=== PATIENT | female | born 1945 | race Caucasian/White ===

== ENCOUNTER 2019-12-05 12:00 | Emergency (ER) | payer MEDICARE, OTHER ==
[~2019-12-05] VITALS: Ht 167.6 cm; Wt 49.9 kg
[~2019-12-05 12:00] MED LIST: ALBU90OI INH; ASPI81CH; FLUC150A PO; GABA100; Monodox100 MG PO; OXYC5; SPACE CHAMBER1 EACH MC
[2019-12-05] MEDS ORDERED: CONEST.625 PO (15:52)
[2019-12-05] MEDS ORDERED: TRAZ100 PO (15:52)
[2019-12-05] MEDS ORDERED: OXYC10TA19 PO (15:57)
== END 2019-12-05 16:15 | disposition home or self-care (01) ==
LOC: ER 12:00
DX: G89.29 Other chronic pain (principal); M54.2 Cervicalgia; M54.9 Dorsalgia, unspecified; M79.605 Pain in left leg; M79.604 Pain in right leg; Z76.0 Encounter for issue of repeat prescription; Z79.82 Long term (current) use of aspirin; Z79.899 Other long term (current) drug therapy; Z86.69 Personal history of other diseases of the nervous system and sense organs; Z87.39 Personal history of other diseases of the musculoskeletal system and connective tissue; Z88.0 Allergy status to penicillin; Z88.8 Allergy status to other drugs, medicaments and biological substances
CPT/HCPCS: 99281

== ENCOUNTER 2020-09-02 12:36 | Emergency (ER) | payer MEDICARE, OTHER ==
[~2020-09-02] VITALS: Ht 167.6 cm; Wt 51.7 kg
[~2020-09-02 12:36] MED LIST changes: +CONEST.625 PO; +OXYC10TA19 PO; +TRAZ100 PO
[2020-09-02] MEDS ORDERED: FLUTICASONE PRO16 GM (13:26)
[2020-09-02] MEDS ORDERED: CETI5 PO (13:26)
[2020-09-02 13:28] LABS: BASOPHILS ABSOLUTE AUTO 0.04 K/mm3 (0.00-0.23); BASOPHILS PERCENT AUTO 1 % (0-2); EOSINOPHILS ABSOLUTE AUTO 0.06 K/mm3 (0.00-0.68); EOSINOPHILS PERCENT AUTO 1 % (0-6); Hematocrit 37.8 % (33.0-51.0); Hemoglobin 12.4 g/dL (11.5-16.0); IMMATURE GRAN ABSOLUTE AUTO 0.02 K/mm3 (0.00-0.10); IMMATURE GRAN PERCENT AUTO 0 % (0-1); LYMPHOCYTES ABSOLUTE AUTO 1.23 K/mm3 (0.84-5.20); LYMPHOCYTES PERCENT AUTO 21 % (21-46); MONOCYTES ABSOLUTE AUTO 0.39 K/mm3 (0.16-1.47); MONOCYTES PERCENT AUTO 7 % (4-13); Mean Corpuscular HGB 31.5 pg (26.0-34.0); Mean Corpuscular HGB Conc 32.8 g/dL (31.5-36.5); Mean Corpuscular Volume 96 fL (80-100); Mean Platelet Volume 9.7 fL (9.1-12.4); NEUTROPHILS ABSOLUTE AUTO 4.09 K/mm3 (1.96-9.15); NEUTROPHILS PERCENT AUTO 70 % (41-73); Platelet Count 237 K/mm3 (150-400); RDW Coefficient Variation 12.5 % (11.7-14.2); RDW Standard Deviation 43.9 fL (35.1-46.3); Red Blood Cell Count 3.94 M/mm3 (3.80-5.20); White Blood Cell Count 5.83 K/mm3 (4.00-11.30)
[2020-09-02 13:51] LABS: Alanine Aminotransfer (ALT/SGP 15 U/L (12-78); Albumin, Blood 3.2 g/dL (3.4-5.0); Albumin/Globulin Ratio 0.8 (0.8-1.8); Alk Phos 53 U/L (50-136); Anion Gap 4 mmol/L (6-16); Aspartate Aminotrans (AST/SGOT 13 U/L (12-37); Bilirubin, Total 0.2 mg/dL (0.1-1.0); Blood Urea Nitrogen 22 mg/dL (8-24); Bun/Creatinine Ratio 27.7 (12.0-20.0); CO2, Blood 28 mmol/L (21-32); Calcium, Blood 9.6 mg/dL (8.5-10.1); Chloride, Blood 101 mmol/L (98-108); Globulin, Blood 4.2 g/dL (2.2-4.0); Glomerular Filtration Rate >60 (60-); Glucose, Blood 110 mg/dL (70-99); Sodium, Blood 133 mmol/L (136-145); Total Protein, Blood 7.4 g/dL (6.4-8.2); Troponin I <0.015 ng/mL (0.000-0.040)
== END 2020-09-02 15:21 | disposition home or self-care (01) ==
LOC: ER 12:36
PROVIDERS: Emergency Medicine
DX: M25.462 Effusion, left knee (principal); R19.7 Diarrhea, unspecified; R07.9 Chest pain, unspecified; Z88.0 Allergy status to penicillin; Z88.8 Allergy status to other drugs, medicaments and biological substances; Z79.82 Long term (current) use of aspirin; Z79.899 Other long term (current) drug therapy
CPT/HCPCS: 29505; 36415; 71045; 73562-RT; 80053; 84484; 85025; 93005; 93010; 99284-25

== ENCOUNTER 2021-06-09 11:13 | Emergency (ER) | payer MEDICARE, OTHER ==
[~2021-06-09] VITALS: Ht 167.6 cm; Wt 51.7 kg
[~2021-06-09 11:13] MED LIST changes: +CETI5 PO; +FLUTICASONE PRO16 GM; -GABA100; +GABA100 PO
[2021-06-09 11:49] LABS: BASOPHILS ABSOLUTE AUTO 0.04 K/mm3 (0.00-0.23); BASOPHILS PERCENT AUTO 1 % (0-2); EOSINOPHILS ABSOLUTE AUTO 0.05 K/mm3 (0.00-0.68); EOSINOPHILS PERCENT AUTO 1 % (0-6); Hematocrit 38.4 % (33.0-51.0); Hemoglobin 12.7 g/dL (11.5-16.0); IMMATURE GRAN ABSOLUTE AUTO 0.01 K/mm3 (0.00-0.10); IMMATURE GRAN PERCENT AUTO 0 % (0-1); LYMPHOCYTES ABSOLUTE AUTO 1.45 K/mm3 (0.84-5.20); LYMPHOCYTES PERCENT AUTO 26 % (21-46); MONOCYTES ABSOLUTE AUTO 0.35 K/mm3 (0.16-1.47); MONOCYTES PERCENT AUTO 6 % (4-13); Mean Corpuscular HGB Conc 33.1 g/dL (31.5-36.5); Mean Corpuscular Volume 97 fL (80-100); Mean Platelet Volume 9.4 fL (9.1-12.4); NEUTROPHILS ABSOLUTE AUTO 3.72 K/mm3 (1.96-9.15); NEUTROPHILS PERCENT AUTO 66 % (41-73); Platelet Count 205 K/mm3 (150-400); RDW Standard Deviation 46.6 fL (35.1-46.3); Red Blood Cell Count 3.97 M/mm3 (3.80-5.20); White Blood Cell Count 5.62 K/mm3 (4.00-11.30)
[2021-06-09 12:12] LABS: Alanine Aminotransfer (ALT/SGP 17 U/L (12-78); Albumin, Blood 3.6 g/dL (3.4-5.0); Albumin/Globulin Ratio 0.9 (0.8-1.8); Alk Phos 48 U/L (50-136); Anion Gap 8 mmol/L (6-16); Aspartate Aminotrans (AST/SGOT 20 U/L (12-37); Bilirubin, Total 0.3 mg/dL (0.1-1.0); Blood Urea Nitrogen 18 mg/dL (8-24); Bun/Creatinine Ratio 22.2 (12.0-20.0); CO2, Blood 30 mmol/L (21-32); Calcium, Blood 10.6 mg/dL (8.5-10.1); Chloride, Blood 101 mmol/L (98-108); Creatinine, Blood 0.81 mg/dL (0.40-1.00); Glomerular Filtration Rate >60 (60-); Glucose, Blood 93 mg/dL (70-99); Potassium, Blood 4.1 mmol/L (3.5-5.5); Sodium, Blood 139 mmol/L (136-145); Total Protein, Blood 7.6 g/dL (6.4-8.2)
[2021-06-09 12:13] LABS: Source, Urine Clean Catch
[2021-06-09 12:21] LABS: Appearance, Urine Cloudy (Clear); Bilirubin, Urine Neg (Neg); Blood, Urine Neg (Neg); Color, Urine Yellow (P-Yellow); Glucose Qualitative, Urine Neg (Neg); Ketones, Urine Neg (Neg); Leukocyte Esterase, Urine 1+ (Neg); Nitrite, Urine Neg (Neg); Protein, Urine Neg (Neg); Specific Gravity, Urine 1.015 (1.003-1.022); Urobilinogen, Urine NORM (Normal)
[2021-06-09 12:58] LABS: Bacteria Mod /hpf; Red Blood Cells, Urine 0-2 /hpf (0-2); Squamous Epithelial Cells Few /hpf (Few)
[2021-06-09 16:44] LABS: Influenza A, PCR NEGATIVE (NEGATIVE); Influenza B, PCR NEGATIVE (NEGATIVE); Resp Syncytial Virus, PCR NEGATIVE (NEGATIVE); SARS-Cov-2 (COVID-19) PCR, MMC NEGATIVE (NEGATIVE)
[2021-06-09 19:47] LABS: Adenovirus F 40/41 Not Detected (NOT DETECT); Astrovirus Not Detected (NOT DETECT); Campylobacter Sp Not Detected (NOT DETECT); Cryptosporidium Not Detected (NOT DETECT); Cyclospora Cayetanensis Not Detected (NOT DETECT); E. Coli O157 Not Detected (NOT DETECT); Entamoeba Histolytica Not Detected (NOT DETECT); Enteroaggregative E. coli-EAEC Not Detected (NOT DETECT); Enteropathogenic E. coli-EPEC Not Detected (NOT DETECT); Enterotoxigenic E. coli-ETEC Not Detected (NOT DETECT); Giardia Lamblia Not Detected (NOT DETECT); Norovirus GI/GII Detected (NOT DETECT); Plesiomonas Shigelloides Not Detected (NOT DETECT); Rotavirus A Not Detected (NOT DETECT); Salmonella Sp Not Detected (NOT DETECT); Sapovirus Not Detected (NOT DETECT); Shiga Toxin-prod E. coli-STEC Not Detected (NOT DETECT); Shigella/Enteroin E. coli-EIEC Not Detected (NOT DETECT); Vibrio Cholerae Not Detected (NOT DETECT); Vibrio Sp Not Detected (NOT DETECT); Yersinia Enterocolitica Not Detected (NOT DETECT)
[2021-06-09] MEDS ORDERED: LOPE2C PO (20:37)
== END 2021-06-09 21:00 | disposition home or self-care (01) ==
LOC: ER 11:13
PROVIDERS: Emergency Medicine; Physician Assistant
DX: R19.7 Diarrhea, unspecified (principal); G35 Multiple sclerosis; Z88.8 Allergy status to other drugs, medicaments and biological substances; Z20.822 Contact with and (suspected) exposure to COVID-19
CPT/HCPCS: 0241U; 36415; 70450; 80053; 81001; 85025; 87507

== ENCOUNTER 2021-12-02 14:47 | Inpatient (IN) | payer MEDICARE, OTHER ==
[~2021-12-02] VITALS: Ht 167.6 cm; Wt 64.7 kg
[~2021-12-02 14:47] MED LIST changes: +LOPE2C PO
[2021-12-02 16:25] LABS: BASOPHILS ABSOLUTE AUTO 0.04 K/mm3 (0.00-0.23); BASOPHILS PERCENT AUTO 1 % (0-2); EOSINOPHILS ABSOLUTE AUTO 0.03 K/mm3 (0.00-0.68); EOSINOPHILS PERCENT AUTO 1 % (0-6); Hematocrit 39.5 % (33.0-51.0); Hemoglobin 13.2 g/dL (11.5-16.0); IMMATURE GRAN ABSOLUTE AUTO 0.03 K/mm3 (0.00-0.10); IMMATURE GRAN PERCENT AUTO 1 % (0-1); LYMPHOCYTES PERCENT AUTO 19 % (21-46); MONOCYTES ABSOLUTE AUTO 0.39 K/mm3 (0.16-1.47); MONOCYTES PERCENT AUTO 7 % (4-13); Mean Corpuscular HGB 31.7 pg (26.0-34.0); Mean Corpuscular HGB Conc 33.4 g/dL (31.5-36.5); Mean Corpuscular Volume 95 fL (80-100); Mean Platelet Volume 10.2 fL (9.1-12.4); NEUTROPHILS ABSOLUTE AUTO 4.34 K/mm3 (1.96-9.15); NEUTROPHILS PERCENT AUTO 73 % (41-73); Platelet Count 288 K/mm3 (150-400); RDW Coefficient Variation 13.7 % (11.7-14.2); RDW Standard Deviation 47.9 fL (35.1-46.3); Red Blood Cell Count 4.16 M/mm3 (3.80-5.20); White Blood Cell Count 5.93 K/mm3 (4.00-11.30)
[2021-12-02 16:38] LABS: Albumin, Blood 3.7 g/dL (3.4-5.0); Bilirubin, Total 0.4 mg/dL (0.1-1.0); Bun/Creatinine Ratio 27.6 (12.0-20.0); Calcium, Blood 9.7 mg/dL (8.5-10.1); Creatinine, Blood 0.98 mg/dL (0.40-1.00); Globulin, Blood 3.7 g/dL (2.2-4.0); Magnesium, Blood 2.5 mg/dL (1.6-2.4); Potassium, Blood 4.4 mmol/L (3.5-5.5); Total Protein, Blood 7.4 g/dL (6.4-8.2)
[2021-12-02 16:53] LABS: Influenza A, PCR NEGATIVE (NEGATIVE); Influenza B, PCR NEGATIVE (NEGATIVE); Resp Syncytial Virus, PCR NEGATIVE (NEGATIVE); SARS-Cov-2 (COVID-19) PCR, MMC NEGATIVE (NEGATIVE)
[2021-12-02 18:10] LABS: Source, Urine Clean Catch
[2021-12-02 18:19] LABS: Bilirubin, Urine Neg (Neg); Blood, Urine Neg (Neg); Color, Urine Yellow (P-Yellow); Glucose Qualitative, Urine Neg (Neg); Ketones, Urine 2+ (Neg); Leukocyte Esterase, Urine 1+ (Neg); Nitrite, Urine Neg (Neg); Protein, Urine 2+ (Neg); Urobilinogen, Urine NORM (Normal)
[2021-12-02 18:36] LABS: Appearance, Urine Hazy (Clear)
[2021-12-02 18:37] LABS: Hyaline Casts TNTC /lpf (0-2)
[2021-12-02 18:38] LABS: Bacteria Few /hpf; Red Blood Cells, Urine 0-2 /hpf (0-2); Renal Epithelial Rare /hpf (0-Rare); Squamous Epithelial Cells Few /hpf (Few)
[2021-12-02 22:40] LABS: Hemoglobin 11.5 g/dL (11.5-16.0); Mean Corpuscular HGB 31.7 pg (26.0-34.0); Mean Corpuscular HGB Conc 32.9 g/dL (31.5-36.5); Mean Corpuscular Volume 96 fL (80-100); Mean Platelet Volume 9.9 fL (9.1-12.4); Platelet Count 226 K/mm3 (150-400); RDW Coefficient Variation 13.7 % (11.7-14.2); RDW Standard Deviation 48.8 fL (35.1-46.3); Red Blood Cell Count 3.63 M/mm3 (3.80-5.20); White Blood Cell Count 5.06 K/mm3 (4.00-11.30)
--- NOTE | 2021-12-03 02:34 | NUR ---
ADMISSION: PT ARRIVED VIA GURNEY TO U 13 @0145, SLID OVER FROM [facility] TO HOSPITAL BED. PT ALERT AND ORIENTED X4, BP STABLE, HR AFIB 110'S, AFEBRILE, SATING >94% ON RA. NO COMPLAINTS OF CP OF SOB. RESPIRATIONS EVEN AND UNLABORED. SKIN WARM TO TOUCH. STRENGTH EQUAL BILATERALLY. PT NPO FOR POSSIBLE THROACENTESIS TOMORROW. MUTIPLE INSECT BITES NOTED ON PT UPPER EXTREMENTIES. PT STATES THEY ARE "TIC BITES." NO OTHER COMPLAINTS AT THIS TIMES. PT ORIENTED TO CALL LIGHT, BED IN LOW, CALL LIGHT IN REACH.
[2021-12-03 04:19] LABS: Hematocrit 31.9 % (33.0-51.0); Hemoglobin 10.4 g/dL (11.5-16.0); Mean Corpuscular HGB 31.6 pg (26.0-34.0); Mean Corpuscular HGB Conc 32.6 g/dL (31.5-36.5); Mean Corpuscular Volume 97 fL (80-100); Mean Platelet Volume 10.1 fL (9.1-12.4); Platelet Count 210 K/mm3 (150-400); RDW Standard Deviation 49.5 fL (35.1-46.3); Red Blood Cell Count 3.29 M/mm3 (3.80-5.20); White Blood Cell Count 6.49 K/mm3 (4.00-11.30)
[2021-12-03 04:37] LABS: International Normalized Ratio 1.09; Prothrombin Time Results 11.4 Sec (9.7-11.5)
[2021-12-03 05:04] LABS: Albumin, Blood 2.6 g/dL (3.4-5.0); Bilirubin, Total 0.4 mg/dL (0.1-1.0); Bun/Creatinine Ratio 27.3 (12.0-20.0); Calcium, Blood 7.8 mg/dL (8.5-10.1); Creatinine, Blood 0.84 mg/dL (0.40-1.00); Globulin, Blood 2.7 g/dL (2.2-4.0); Potassium, Blood 4.2 mmol/L (3.5-5.5); Total Protein, Blood 5.3 g/dL (6.4-8.2)
--- NOTE | 2021-12-03 05:13 | NUR ---
SHIFT SUMMARY: PT REMAINS ALERT AND ORIENTED X4, BP STABLE, HR REMAINS AFIB 90'S, AFEBRILE, SATING >95% ON RA. 0200 LOPRESSOR HELD DUE TO BP AND IMPROVED HR. NOTIFIED. PT DENIES N/V. NO BM THIS SHIFT. PT ABLE TO REPOS IND IN BED, HAS SLEPT ON AND OFF SINCE ADMISSION. PT REMAINS NPO FOR POSS THORACENTESIS TODAY. BED IN LOW, CALL LIGHT IN REACH, WILL REPORT TO ONCOMING RN.
--- NOTE | 2021-12-03 10:41 | NUR ---
LAB CONTACTED THIS RN [id number] ABOUT FLUIDS REMOVED DURING THORACENTESIS. LAB RECIEVED FLUIDS FROM HYDRAULICS ENGINEER AND ASKED IF THE MD WAS WANTING THE FLUIDS CHECKED FOR ANYTHING SINCE THERE WAS NO ORDERS. THIS RN CONTACTED MD AT 1035 ABOUT FLUIDS. AWAITING FURTHER INSTRUCTION FROM
[2021-12-03 11:31] LABS: Automated BF WBC Count 0.063 K/mm3 (0-999)
[2021-12-03 11:45] LABS: Body Fluid WBC Count 63 /mm3 (0-999); Lactate Dehydrogenase, Body Fl 54 U/L
[2021-12-03 11:49] LABS: Glucose, Body Fluid 98 mg/dL; Protein, Body Fluid 1.4 g/dL
[2021-12-03 12:38] LABS: RBC Count, Body Fluid 1045 /mm3 (0-0)
[2021-12-03 12:43] LABS: Appearance, Body Fluid Clear (Clear); Color, Body Fluid L Yellow (None-Yellow); Total Cell Count, Body Fluid 19
--- NOTE | 2021-12-03 15:18 | NUR ---
UPDATE HAD CONVERSATION WITH PT ABOUT CABRAL ON PT ARMS. PT STATES "THEY ARE FROM TICK BITES." DR NOTIFIED OF CONVERSATION WITH PT.
--- NOTE | 2021-12-03 17:16 | NUR ---
SHIFT SUMARY PT A/OX4 AND COOPERATIVE OF CARE. PT HR REMAINED IN THE 110'S THROUGHOUT SHIFT, NO REPORT OF CHEST PAIN/PRESSURE. OTHER VSS THROUGHOUT SHIFT WITH 02 SATS IN THE 90'S ON RA. PT HAD THORACENTESIS DONE TODAY, 500ML REMOVED AND SENT TO LAB. ECHO DONE TODAY, AWAITING RESULTS. NO REPORT OF COB/DYSPNEA THROUGHOUT SHIFT. PT INDEPENDENT IN ROOM TRANSFERING TO AND FROM BEDSIDE COMMODE AND CHAIR, TOLERATED WELL. DISCUSSED CABRAL ON PT ARMS, PT STATED THAT THEY CABRAL ARE FROM "TICK BITES." NOTIFIED OF DISCUSSION, LYME DISEASE SEROLOGY ORDERED BY
--- NOTE | 2021-12-03 19:15 | NUR ---
ASSUMPTION OF CARE PT RESTING IN BED WATCHING TELEVISION. SHE IS A&OX4 WITH PLEASANT AFFECT AND PARTICIPATES IN CONVERSATION. PT REPORTS FEELING "SO-SO". PT EXPRESSES GI UPSET AND DIARRHEA. SHE DENIES CP OR SOB. VSS. BED IN LOWEST POSITION AND CALL LIGHT WITHIN REACH. SEE SHIFT ASSESSMENT.
[2021-12-03 19:46] LABS: Campylobacter Sp Not Detected (NOT DETECT)
[2021-12-03 19:47] LABS: Adenovirus F 40/41 Not Detected (NOT DETECT); Astrovirus Not Detected (NOT DETECT); Cryptosporidium Not Detected (NOT DETECT); Cyclospora Cayetanensis Not Detected (NOT DETECT); E. Coli O157 Not Detected (NOT DETECT); Entamoeba Histolytica Not Detected (NOT DETECT); Enteroaggregative E. coli-EAEC Not Detected (NOT DETECT); Enteropathogenic E. coli-EPEC Not Detected (NOT DETECT); Enterotoxigenic E. coli-ETEC Not Detected (NOT DETECT); Giardia Lamblia Not Detected (NOT DETECT); Norovirus GI/GII Detected (NOT DETECT); Plesiomonas Shigelloides Not Detected (NOT DETECT); Rotavirus A Not Detected (NOT DETECT); Salmonella Sp Not Detected (NOT DETECT); Sapovirus Not Detected (NOT DETECT); Shiga Toxin-prod E. coli-STEC Not Detected (NOT DETECT); Shigella/Enteroin E. coli-EIEC Not Detected (NOT DETECT); Vibrio Cholerae Not Detected (NOT DETECT); Vibrio Sp Not Detected (NOT DETECT); Yersinia Enterocolitica Not Detected (NOT DETECT)
--- NOTE | 2021-12-04 05:37 | NUR ---
SHIFT SUMMARY PT REMAINS A&OX4. PT CONTINUES TO HAVE GI UPSET THAT IS DESCRIBED ACHING/CRAMPING AND INTERMITTENT NAUSEA. PT HAS HAD SEVERAL EPISODES OF DARK BROWN LOOSE/LIQUID BOWEL MOVEMENTS. PT AMBULATES TO BEDSIDE COMMODE INDEPENDENTLY. MULTIPLE UNMEASURED DARK YELLOW VOIDS THIS SHIFT. PT AFLUTTER ON MONITOR WITH RATE 80S-110S. SHE HAS DENIED CP AND PALPITATIONS. BP STABLE WITH MAP >65. LUNGS CLEAR IN UPPER LOBES, DIMINISHED IN BASES. SHE DENIES SOB, SPO2 >95% ON RA. WILL REPORT TO ONCOMING RN.
[2021-12-04 08:42] LABS: Bun/Creatinine Ratio 45.6 (12.0-20.0); Calcium, Blood 8.8 mg/dL (8.5-10.1); Creatinine, Blood 0.77 mg/dL (0.40-1.00); Magnesium, Blood 2.4 mg/dL (1.6-2.4); Potassium, Blood 4.2 mmol/L (3.5-5.5)
[2021-12-04 08:45] LABS: BASOPHILS ABSOLUTE AUTO 0.03 K/mm3 (0.00-0.23); BASOPHILS PERCENT AUTO 1 % (0-2); EOSINOPHILS ABSOLUTE AUTO 0.06 K/mm3 (0.00-0.68); EOSINOPHILS PERCENT AUTO 1 % (0-6); Hematocrit 38.1 % (33.0-51.0); Hemoglobin 12.6 g/dL (11.5-16.0); IMMATURE GRAN ABSOLUTE AUTO 0.02 K/mm3 (0.00-0.10); IMMATURE GRAN PERCENT AUTO 0 % (0-1); LYMPHOCYTES ABSOLUTE AUTO 2.03 K/mm3 (0.84-5.20); LYMPHOCYTES PERCENT AUTO 33 % (21-46); MONOCYTES PERCENT AUTO 7 % (4-13); Mean Corpuscular HGB 32.1 pg (26.0-34.0); Mean Corpuscular HGB Conc 33.1 g/dL (31.5-36.5); Mean Corpuscular Volume 97 fL (80-100); Mean Platelet Volume 10.2 fL (9.1-12.4); NEUTROPHILS ABSOLUTE AUTO 3.61 K/mm3 (1.96-9.15); NEUTROPHILS PERCENT AUTO 59 % (41-73); Platelet Count 250 K/mm3 (150-400); RDW Coefficient Variation 14.1 % (11.7-14.2); RDW Standard Deviation 49.8 fL (35.1-46.3); Red Blood Cell Count 3.93 M/mm3 (3.80-5.20); White Blood Cell Count 6.15 K/mm3 (4.00-11.30)
[2021-12-04 10:30] LABS: Thyroid Stimulating Hormone 0.7 uIU/mL (0.360-4.800)
[2021-12-04 12:17] LABS: Stool Occult Blood Guaiac 1 Neg (Neg)
--- NOTE | 2021-12-04 17:46 | NUR ---
SHIFT SUMMARY PT A/OX4 AND COOPERATIVE OF CARE. PT HR REMAINED A-FIB THROUGHOUT SHIFT BUT AT A MORE CONTROLED RATE THAN YESTERDAY. HR RANGED 90-100'S. OTHER VSS THROUGHOUT SHIFT WITH 02 SATS >92% ON RA. NO REPOR TOF CHEST PAIN/PRESSURE THROUGHOUT SHIFT. PT SEEN BY PHYSICAL THERAPY TODAY, PT REPORTED "I GOT TIRED PRETTY EASILY." PT INDEPENDENT WITHIN ROOM. PT SEEN BY BACKGROUND CHECK COORDINATOR TODAY, NEW MEDS ORDERED SEE CECYR.
[2021-12-05 04:16] LABS: BASOPHILS ABSOLUTE AUTO 0.04 K/mm3 (0.00-0.23); BASOPHILS PERCENT AUTO 1 % (0-2); EOSINOPHILS ABSOLUTE AUTO 0.08 K/mm3 (0.00-0.68); EOSINOPHILS PERCENT AUTO 2 % (0-6); Hematocrit 35.5 % (33.0-51.0); Hemoglobin 11.2 g/dL (11.5-16.0); IMMATURE GRAN ABSOLUTE AUTO 0.01 K/mm3 (0.00-0.10); IMMATURE GRAN PERCENT AUTO 0 % (0-1); LYMPHOCYTES ABSOLUTE AUTO 1.58 K/mm3 (0.84-5.20); LYMPHOCYTES PERCENT AUTO 32 % (21-46); MONOCYTES ABSOLUTE AUTO 0.38 K/mm3 (0.16-1.47); MONOCYTES PERCENT AUTO 8 % (4-13); Mean Corpuscular HGB 30.9 pg (26.0-34.0); Mean Corpuscular HGB Conc 31.5 g/dL (31.5-36.5); Mean Corpuscular Volume 98 fL (80-100); NEUTROPHILS PERCENT AUTO 58 % (41-73); Platelet Count 221 K/mm3 (150-400); RDW Coefficient Variation 14.1 % (11.7-14.2); RDW Standard Deviation 50.6 fL (35.1-46.3); Red Blood Cell Count 3.63 M/mm3 (3.80-5.20); White Blood Cell Count 4.99 K/mm3 (4.00-11.30)
[2021-12-05 04:42] LABS: Alanine Aminotransfer (ALT/SGP 294 U/L (12-78); Albumin, Blood 2.5 g/dL (3.4-5.0); Alk Phos 94 U/L (50-136); Anion Gap 8 mmol/L (6-16); Aspartate Aminotrans (AST/SGOT 232 U/L (12-37); Bilirubin, Total 0.6 mg/dL (0.1-1.0); Blood Urea Nitrogen 33 mg/dL (8-24); Bun/Creatinine Ratio 43.2 (12.0-20.0); CHOL/HDL RATIO 2.3; CO2, Blood 24 mmol/L (21-32); Calcium, Blood 8.3 mg/dL (8.5-10.1); Chloride, Blood 109 mmol/L (98-108); Cholesterol 114 mg/dL (50-200); Creatinine, Blood 0.76 mg/dL (0.40-1.00); Globulin, Blood 2.6 g/dL (2.2-4.0); Glomerular Filtration Rate 81 (60-); Glucose, Blood 75 mg/dL (70-99); HDL Cholesterol 49 mg/dL (>39); LDL/HDL RATIO 1.1; Low Density Lipoprotein Chol 54 mg/dL (0-110); Magnesium, Blood 2.6 mg/dL (1.6-2.4); Potassium, Blood 4.2 mmol/L (3.5-5.5); Sodium, Blood 141 mmol/L (136-145); Total Protein, Blood 5.1 g/dL (6.4-8.2); Triglycerides 53 mg/dL (30-160); Very Low Density Lipoprot Chol 10 mg/dL (6-32)
--- NOTE | 2021-12-05 06:53 | NUR ---
SHIFT SUMMARY PT A&O X4. PT REPORTS SHE IS FEELING "TIRED". VSS. REPORTS MILD SOB, O2 SATS >95% ON RA. NO DYSPNEA NOTED. REPORTS MILD CHEST PRESSURE, BUT STATES THIS IS NOT NEW AND NO CHANGES. STATES IT COMES AND GOES. PT HAD QUESTIONS ABOUT CHF, EDUCATION PROVIDED. PT VERBALIZED UNDERSTANDING. PT RESTED MOST OF SHIFT. UP TO BSC INDEPENDENTLY. VOIDING DARK-YELLOW URINE.
--- NOTE | 2021-12-05 10:08 | NUR ---
PT HAS A GI CONSULT ORDERED. CONFIRMED WITH DR. CAMILO THAT SHE STILL WANTED THIS AND SHE DOES FOR PT'S ONGOING DIARRHEA AND ELEVATED LIVER ENZYMES. CALL LIST SAYS DR. ZHU IS ON FOR GI. CALLED HIM AND HE SAYS HE ACTUALLY IS NOT ON. DR. NUNEZ IS ON, BUT ONLY COVERING ESTABLISHED PATIENTS. PAGED DR. NUNEZ, NO RESPONSE YET. SPOKE WITH DR. CAMILO AGAIN AND INFORMED HER OF THE PROBABLITY OF PT NOT BEING SEEN TODAY AND SHE IS OK WITH THAT AND JUST ASKED CONSULT TO BE CALLED IN WHENEVER THERE IS GI.
--- NOTE | 2021-12-05 13:11 | NUR ---
REASSESSMENT PT HAS BEEN RESTING IN BED THROUGHOUT THE MORNING, BUT GETS UP FREQUENTLY TO USE THE RESTROOM. SHE REMAINS ALERT AND ORIENTED. LUNGS ARE CLEAR, BUT DIM, NONPRODUCTIVE COUGH. REMAINS IN AFIB, RATE IN THE UPPER 80S, BP STABLE. PT IS UNHAPPY ABOUT HAVING TO TAKE SO MANY MEDICATIONS WHEN SHE USED TO TAKE NONE AND SHE IS WORRIED ABOUT THE SIDE EFFECTS. THE NEEDS AND BENEFITS OF THE MEDICATIONS REVIEWED WITH THE PT AND SHE IS ABLE TO SEE THE NEED FOR THEM, BUT STILL DOESN'T LIKE THAT SHE HAS TO TAKE THEM. CONTINUING TO MONITOR.
--- NOTE | 2021-12-05 17:44 | NUR ---
TRANSFER OF CARE: REPORT RECEIVED FROM RUBIN STODDARD AT 1330. NO ACUTE CHANGE SINCE THEN. PT REMAINS IN BED INDEPENDENT IN THE ROOM, NO COMPLAINS, CALLS APPROPRIATELY. VITALS HAS BEEN STABLE. CALL LIGHTS IN REACH WILL REPORT TO ONCOMING SHIFT
[2021-12-06 04:22] LABS: BASOPHILS ABSOLUTE AUTO 0.04 K/mm3 (0.00-0.23); BASOPHILS PERCENT AUTO 1 % (0-2); EOSINOPHILS ABSOLUTE AUTO 0.12 K/mm3 (0.00-0.68); EOSINOPHILS PERCENT AUTO 3 % (0-6); Hemoglobin 11.5 g/dL (11.5-16.0); IMMATURE GRAN ABSOLUTE AUTO 0.01 K/mm3 (0.00-0.10); IMMATURE GRAN PERCENT AUTO 0 % (0-1); LYMPHOCYTES PERCENT AUTO 29 % (21-46); MONOCYTES ABSOLUTE AUTO 0.43 K/mm3 (0.16-1.47); MONOCYTES PERCENT AUTO 9 % (4-13); Mean Corpuscular HGB 31.2 pg (26.0-34.0); Mean Corpuscular HGB Conc 31.9 g/dL (31.5-36.5); Mean Corpuscular Volume 98 fL (80-100); NEUTROPHILS ABSOLUTE AUTO 2.77 K/mm3 (1.96-9.15); NEUTROPHILS PERCENT AUTO 58 % (41-73); Platelet Count 224 K/mm3 (150-400); RDW Coefficient Variation 14.1 % (11.7-14.2); RDW Standard Deviation 50.4 fL (35.1-46.3); Red Blood Cell Count 3.69 M/mm3 (3.80-5.20); White Blood Cell Count 4.77 K/mm3 (4.00-11.30)
[2021-12-06 04:49] LABS: Albumin, Blood 2.5 g/dL (3.4-5.0); Albumin/Globulin Ratio 0.9 (0.8-1.8); Bilirubin, Total 0.4 mg/dL (0.1-1.0); Creatinine, Blood 0.78 mg/dL (0.40-1.00); Globulin, Blood 2.9 g/dL (2.2-4.0); Magnesium, Blood 2.5 mg/dL (1.6-2.4); Total Protein, Blood 5.4 g/dL (6.4-8.2)
--- NOTE | 2021-12-06 05:51 | NUR ---
SHIFT SUMMARY PT A&0 X4. INTERACTING AND RESPONDING APPROPRIATELY. PT APPEARS TO BE FATIGUE AND REPORTS TO FEELING "VERY TIRED". STATES SHE JUST "DOESN'T FEEL WELL" BUT IS NOT ABLE TO ARTICULATE EXACTLY WHY OR WHAT THE PROBLEM IS. PT NAUSEATED AT BEGINNING OF SHIFT; MEDICATED PER EMAR WHICH SEEMED TO HELP RELIEVE NAUSEA. NO FURTHER REPORTS OF NAUSEA. VSS. PT REPORTS MILD SOB AT START OF SHIFT, BUT STATES SHE HAD JUST "GOT UP TO USE THE BATHROOM AND GOT BACK INTO BED". NO DISTRESS OR DYSPNEA NOTED. PT DENIES CHEST PAIN OR PRESSURE. PT UP INDEPENDENTLY TO USE BSC, VOIDING WELL. PT DENIES DIARRHEA AND REPORTS NO BM DURING SHIFT. PT SLEPT MOST OF SHIFT, EXCEPT TO USE BSC. NO ACUTE CHANGES. CALL LIGHT IN REACH AND BED IN LOWEST POSITION
[2021-12-06 09:12] LABS: LYME TOTAL ANTIBODY CIA Negative (Negative)
--- NOTE | 2021-12-06 18:19 | NUR ---
SHIFT SUMMARY: PT CONTINUES A&Ox4, ANSWERS QUESTIONS APPROPRIATELY AND COOPERATIVE W/CARE. O2 SATS >92% ON RA, AFIB ON MONITOR W/RATE 90-100s. PT DENIES CP, REPORTS MILD SOB W/ACTIVITY, C/O FATIGUE AND NAUSEA. PT MEDICATED PER EMAR FOR NAUSEA, SLEEPS OFTEN, DENIES GETTING INTO CHAIR FOR MEALS D/TO FATIGUE. PT AMBULATORY TO/FROM RESTROOM, TOLERATES WELL, DENIES BM THIS SHIFT. AT THIS TIME, PT RESTING QUIETLY IN ROOM W/TV ON AND CALL LIGHT WITHIN REACH. WILL CONTINUE TO MONITOR AND TREAT ACCORDINGLY UNTIL CHANGE OF SHIFT.
--- NOTE | 2021-12-06 23:29 | NUR ---
CARE ASSUMPTION: PATIENT IN BED, VSS ON RA, HR 90-110. PATIENT DENIES SOB/CHEST PAIN/N/V/D. PATIENT HAS BITES CABRAL ALONG HER ARMS SHE REPORTS ARE TICK BITES. ENDORSES FATIGUE. BED LOW WITH CALL LIGHT IN REACH.
[2021-12-07 00:08] LABS: HBSAG SCREEN Negative (Negative); HCV AB <0.1 (0.0-0.9); HEP A AB, IGM Negative (Negative); HEP B CORE AB, IGM Negative (Negative)
--- NOTE | 2021-12-07 04:45 | NUR ---
SHIFT SUMMARY: PATIENT A&O X4, VSS ON RA, INDEPENDENT IN ROOM, USES CALL LIGHT APPROPRIATELY. PATIENT DENIES SOB/CHEST PAIN/N/V/D - MEDICATED PER EMAR. SLEPT T/O THE NIGHT. MAKES NEEDS KNOWN. NO ADVERSE EVENTS THIS SHIFT. BED LOW WITH CALL LIGHT IN REACH. WILL CONTINUE TO MONITOR UNTIL REPORT TO DAY RN.
[2021-12-07 05:52] LABS: BASOPHILS ABSOLUTE AUTO 0.05 K/mm3 (0.00-0.23); BASOPHILS PERCENT AUTO 1 % (0-2); EOSINOPHILS PERCENT AUTO 2 % (0-6); Hematocrit 37.1 % (33.0-51.0); Hemoglobin 11.7 g/dL (11.5-16.0); IMMATURE GRAN ABSOLUTE AUTO 0.02 K/mm3 (0.00-0.10); IMMATURE GRAN PERCENT AUTO 1 % (0-1); LYMPHOCYTES ABSOLUTE AUTO 1.07 K/mm3 (0.84-5.20); LYMPHOCYTES PERCENT AUTO 26 % (21-46); MONOCYTES ABSOLUTE AUTO 0.41 K/mm3 (0.16-1.47); MONOCYTES PERCENT AUTO 10 % (4-13); Mean Corpuscular HGB 30.9 pg (26.0-34.0); Mean Corpuscular HGB Conc 31.5 g/dL (31.5-36.5); Mean Corpuscular Volume 98 fL (80-100); Mean Platelet Volume 9.6 fL (9.1-12.4); NEUTROPHILS ABSOLUTE AUTO 2.46 K/mm3 (1.96-9.15); NEUTROPHILS PERCENT AUTO 60 % (41-73); Platelet Count 225 K/mm3 (150-400); RDW Coefficient Variation 14.2 % (11.7-14.2); RDW Standard Deviation 50.8 fL (35.1-46.3); Red Blood Cell Count 3.79 M/mm3 (3.80-5.20); White Blood Cell Count 4.11 K/mm3 (4.00-11.30)
[2021-12-07 06:09] LABS: Albumin, Blood 2.5 g/dL (3.4-5.0); Albumin/Globulin Ratio 0.9 (0.8-1.8); Bilirubin, Total 0.4 mg/dL (0.1-1.0); Calcium, Blood 8.1 mg/dL (8.5-10.1); Creatinine, Blood 0.83 mg/dL (0.40-1.00); Globulin, Blood 2.9 g/dL (2.2-4.0); Potassium, Blood 4.1 mmol/L (3.5-5.5); Total Protein, Blood 5.4 g/dL (6.4-8.2)
[2021-12-07] MEDS ORDERED: JARDIANCE10 MG PO (15:14)
[2021-12-07] MEDS ORDERED: ELIQUIS5 M2 PO (15:14)
[2021-12-07] MEDS ORDERED: METO25ER PO (15:15)
[2021-12-07] MEDS ORDERED: Lisinopril2.5 MG PO (15:15)
[2021-12-07] MEDS ORDERED: ONDA4ODT MM (15:15)
[2021-12-07] MEDS ORDERED: SPIR25 PO (15:16)
[2021-12-07] MEDS ORDERED: VISBIOME 112.51 EACH PO (15:17)
--- NOTE | 2021-12-07 18:21 | NUR ---
SHIFT SUMMARY A/O X4; PLEASANT AND COOPERATIVE WITH CARE. SOME NAUSEA THIS SHIFT BUT NO VOMITING. PT TO HAVE A LIFE VEST PLACED AND THEN TO DC HOME WITH HOME HEALTH. CONCERNS ABOUT PICKING UP MEDS DUE TO LIFE VEST REP NOT BEING ABLE TO COME UNTIL LATE. PERMISSION GIVEN BY DOCTOR TO GIVE EVENING MEDICATIONS EARLY SO PT CAN BEEF SKINNER ALL NEW MEDICATIONS IN THE AM. VSS.
== END 2021-12-07 20:00 | disposition home health service (06) | DRG 308 ==
LOC: ER 14:47 → PCU 14:48
PROVIDERS: Internal Medicine; Internal Medicine Cardiovascular Disease; Physician Assistant; Student in an Organized Health Care Education/Training Program; ADMIT Internal Medicine
PROC: 0W993ZZ Drainage of Right Pleural Cavity, Percutaneous Approach (ICD-10-PCS; principal; 2021-12-04)
DX: I48.91 Unspecified atrial fibrillation (principal); I50.21 Acute systolic (congestive) heart failure; A08.11 Acute gastroenteropathy due to Norwalk agent; K92.1 Melena; R18.8 Other ascites; J91.8 Pleural effusion in other conditions classified elsewhere; I42.9 Cardiomyopathy, unspecified; Z20.822 Contact with and (suspected) exposure to COVID-19; I34.0 Nonrheumatic mitral (valve) insufficiency; I27.20 Pulmonary hypertension, unspecified; R94.5 Abnormal results of liver function studies; G35 Multiple sclerosis; E87.5 Hyperkalemia; R53.81 Other malaise; M79.7 Fibromyalgia; E86.0 Dehydration; R42 Dizziness and giddiness; Z85.42 Personal history of malignant neoplasm of other parts of uterus; Z86.73 Personal history of transient ischemic attack (TIA), and cerebral infarction without residual deficits; Z87.39 Personal history of other diseases of the musculoskeletal system and connective tissue; Z90.710 Acquired absence of both cervix and uterus; Z88.8 Allergy status to other drugs, medicaments and biological substances; Z88.0 Allergy status to penicillin; Z98.890 Other specified postprocedural states; Z79.82 Long term (current) use of aspirin; Z79.899 Other long term (current) drug therapy
CPT/HCPCS: 0241U; 32555; 36415; 71045; 74177; 80048; 80053; 80061; 80074; 81001; 82272; 82945; 83615; 83735; 83880; 84157; 84443; 84450; 84460; 84484; 85025; 85027; 85610; 86618; 87070; 87086; 87205; 87449; 87507; 89051; 93005; 93010; 93306; 96361; 96365; 96366; 96368; 96375; 97110; 97116; 97162; 97530; 99285-25; A9270; G0480; J0456; J0696; J1790; J1940; J2405; J7030; J7050; J7120; Q9967